=== PATIENT | female | born 1955 | race Caucasian/White ===

== ENCOUNTER 2018-10-07 20:50 | Inpatient (IN) | payer MEDICARE, MEDICAID ==
[~2018-10-07] VITALS: Ht 154.9 cm; Wt 62.1 kg
[2018-10-07 20:50] VITALS: BP 123/80
[~2018-10-07 20:50] MED LIST: CETI-101 PO; GABA-531 PO; META-24 PO; OMEG100017 PO
[2018-10-07] MEDS ORDERED: IPRATROPIUM/ALBUTEROL 0.5-3(2.5)MG/3ML NEB HHN PRN (21:15)
[2018-10-07] MEDS ORDERED: CLONIDINE 0.1MG TABLET PO PRN (21:15)
[2018-10-07] MEDS ORDERED: BISACODYL 10MG SUPP PR PRN (21:15)
[2018-10-07] MEDS ORDERED: MORPHINE SULFATE 2 MG/ML CPJ (NOT FOR IM USE) IV PRN (21:15)
[2018-10-07] MEDS ORDERED: ONDANSETRON HCL 4MG/2ML INJ IV PRN (21:15)
[2018-10-07] MEDS ORDERED: ACETAMINOPHEN 325MG TABLET PO PRN (21:15)
[2018-10-07] MEDS ORDERED: MORPHINE SULFATE 4 MG/ML CPJ (NOT FOR IM USE) IV PRN (21:42)
[2018-10-07 22:50] VITALS: BP 123/80
[2018-10-08] MEDS: HYDROCODONE/ACETAMINOPHEN 5/325MG TABLET PO PRN ×3 (06:04→16:01)
[2018-10-08 07:36] LABS: CHLORIDE 106 mEq/L (98-107)
[2018-10-08 07:38] LABS: BASOPHILS % 0.3 % (0.0-2.0); EOSINOPHILS % 5.4 % (0.0-5.0); HEMOGLOBIN. 13.2 g/dL (12.0-16.0); LYMPHOCYTES % 20.7 % (20.0-50.0); MEAN CORPUSCULAR VOLUME 88.2 fL (81.0-99.0); MEAN PLATELET VOLUME 9.8 fl (7.4-10.4); MONOCYTES % 6.5 % (2.0-8.0); NEUTROPHILS % 67.1 % (40.0-76.0); PLATELET 241 x1000/uL (130-400); RED BLOOD CELL COUNT 4.42 mill/uL (4.2-5.4); RED CELL DISTRIBUTION WIDTH 12.8 % (11.6-14.6)
[2018-10-08 07:53] VITALS: BP 112/76
[2018-10-08] MEDS: FLUTICASONE PROPIONATE 50MCG/SPRAY BOTTLE BOTHNSTRLS SCH ×2 (08:20→21:49)
[2018-10-08] MEDS ORDERED: DOCUSATE SODIUM 100MG CAPSULE PO SCH (09:00)
[2018-10-08] MEDS ORDERED: BISACODYL 10MG SUPP PR PRN (12:45)
[2018-10-08] MEDS ORDERED: NA PHOS,M-B/NA PHOS,DI-BA ENEMA 118ML PR NR (12:45)
[2018-10-08] MEDS: LACTULOSE 20G/30ML UDC PO SCH ×3 (13:05→21:49)
[2018-10-08] MEDS: DOCUSATE SODIUM 100MG CAPSULE PO SCH (16:00)
[2018-10-08 20:00] VITALS: BP 108/74
[2018-10-08] MEDS: POLYETHYLENE GLYCOL 3350 (17GM) 1 DOSE PACK PO SCH (21:49)
[2018-10-09] MEDS: DOCUSATE SODIUM 100MG CAPSULE PO SCH ×2 (08:10→17:06)
[2018-10-09] MEDS: FLUTICASONE PROPIONATE 50MCG/SPRAY BOTTLE BOTHNSTRLS SCH ×2 (08:10→21:59)
[2018-10-09 08:17] VITALS: BP 114/75
[2018-10-09] MEDS: HYDROCODONE/ACETAMINOPHEN 5/325MG TABLET PO PRN (13:56)
[2018-10-09 20:29] VITALS: BP 109/72
[2018-10-09] MEDS: POLYETHYLENE GLYCOL 3350 (17GM) 1 DOSE PACK PO SCH (21:58)
[2018-10-10 08:00] VITALS: BP 121/84
[2018-10-10] MEDS: DOCUSATE SODIUM 100MG CAPSULE PO SCH ×2 (09:19→16:51)
[2018-10-10] MEDS: FLUTICASONE PROPIONATE 50MCG/SPRAY BOTTLE BOTHNSTRLS SCH ×2 (09:19→20:43)
[2018-10-10 10:30] LABS: FOLIC ACID (FOLATE) SERUM 11.7 ng/mL (>5.38)
[2018-10-10 18:20] LABS: T4 FREE 1.33 ng/dL (0.76-1.46)
[2018-10-10 20:00] VITALS: BP 151/83
[2018-10-10] MEDS: POLYETHYLENE GLYCOL 3350 (17GM) 1 DOSE PACK PO SCH (20:43)
[2018-10-11] MEDS: HYDROCODONE/ACETAMINOPHEN 5/325MG TABLET PO PRN (05:57)
[2018-10-11 08:00] VITALS: BP 123/72
[2018-10-11] MEDS: DOCUSATE SODIUM 100MG CAPSULE PO SCH ×2 (08:12→16:01)
[2018-10-11] MEDS: FLUTICASONE PROPIONATE 50MCG/SPRAY BOTTLE BOTHNSTRLS SCH (08:13)
[2018-10-11 09:49] LABS: BASOPHILS % 0.6 % (0.0-2.0); EOSINOPHILS % 9.9 % (0.0-5.0); HEMATOCRIT. 39.3 % (36.0-48.0); HEMOGLOBIN. 13.4 g/dL (12.0-16.0); LYMPHOCYTES % 26.9 % (20.0-50.0); MEAN CORPUSCULAR HEMOGLOBIN 30.3 pg (28.0-32.0); MEAN CORPUSCULAR VOLUME 88.9 fL (81.0-99.0); MEAN PLATELET VOLUME 10.1 fl (7.4-10.4); MONOCYTES % 8.4 % (2.0-8.0); NEUTROPHILS % 54.2 % (40.0-76.0); PLATELET 259 x1000/uL (130-400); RED BLOOD CELL COUNT 4.42 mill/uL (4.2-5.4); RED CELL DISTRIBUTION WIDTH 13.1 % (11.6-14.6)
[2018-10-11 12:21] LABS: CHLORIDE 104 mEq/L (98-107)
[2018-10-11] MEDS: CYANOCOBALAMIN 1000MCG/ML VIAL IM SCH (15:52)
[2018-10-11 20:00] VITALS: BP 101/64
[2018-10-11] MEDS: GABAPENTIN 100MG CAPSULE PO SCH (20:48)
[2018-10-11] MEDS: POLYETHYLENE GLYCOL 3350 (17GM) 1 DOSE PACK PO SCH (20:48)
[2018-10-12] MEDS: GABAPENTIN 100MG CAPSULE PO SCH ×3 (05:08→21:30)
[2018-10-12 06:51] LABS: CHLORIDE 103 mEq/L (98-107)
[2018-10-12 06:58] LABS: BASOPHILS % 0.5 % (0.0-2.0); EOSINOPHILS % 8.2 % (0.0-5.0); HEMATOCRIT. 37.5 % (36.0-48.0); HEMOGLOBIN. 12.8 g/dL (12.0-16.0); LYMPHOCYTES % 28.4 % (20.0-50.0); MEAN CORPUSCULAR HEMOGLOBIN 30.3 pg (28.0-32.0); MEAN PLATELET VOLUME 9.6 fl (7.4-10.4); MONOCYTES % 9.6 % (2.0-8.0); NEUTROPHILS % 53.3 % (40.0-76.0); PLATELET 245 x1000/uL (130-400); RED BLOOD CELL COUNT 4.21 mill/uL (4.2-5.4)
[2018-10-12 08:18] VITALS: BP 108/67
[2018-10-12] MEDS: DOCUSATE SODIUM 100MG CAPSULE PO SCH ×2 (08:47→16:18)
[2018-10-12] MEDS: CYANOCOBALAMIN 1000MCG/ML VIAL IM SCH (08:47)
[2018-10-12 20:00] VITALS: BP 107/63
[2018-10-12] MEDS: POLYETHYLENE GLYCOL 3350 (17GM) 1 DOSE PACK PO SCH (21:00)
[2018-10-13] MEDS: GABAPENTIN 100MG CAPSULE PO SCH ×3 (06:21→21:47)
[2018-10-13 07:19] LABS: BASOPHILS % 0.8 % (0.0-2.0); EOSINOPHILS % 6.1 % (0.0-5.0); HEMATOCRIT. 36.4 % (36.0-48.0); HEMOGLOBIN. 12.8 g/dL (12.0-16.0); LYMPHOCYTES % 32.1 % (20.0-50.0); MEAN CORPUSCULAR HEMOGLOBIN 31.3 pg (28.0-32.0); MEAN CORPUSCULAR VOLUME 89.3 fL (81.0-99.0); MEAN PLATELET VOLUME 9.9 fl (7.4-10.4); MONOCYTES % 9.5 % (2.0-8.0); NEUTROPHILS % 51.5 % (40.0-76.0); PLATELET 245 x1000/uL (130-400); RED BLOOD CELL COUNT 4.08 mill/uL (4.2-5.4); RED CELL DISTRIBUTION WIDTH 12.8 % (11.6-14.6)
[2018-10-13 07:30] LABS: CHLORIDE 106 mEq/L (98-107)
[2018-10-13 07:53] VITALS: BP 107/67
[2018-10-13] MEDS: DOCUSATE SODIUM 100MG CAPSULE PO SCH ×2 (07:58→17:18)
[2018-10-13] MEDS: CYANOCOBALAMIN 1000MCG/ML VIAL IM SCH (07:59)
[2018-10-13 20:00] VITALS: BP 116/74
[2018-10-13] MEDS: POLYETHYLENE GLYCOL 3350 (17GM) 1 DOSE PACK PO SCH (20:43)
[2018-10-14] MEDS: GABAPENTIN 100MG CAPSULE PO SCH ×2 (06:15→13:28)
[2018-10-14 08:48] VITALS: BP 104/69
[2018-10-14] MEDS: DOCUSATE SODIUM 100MG CAPSULE PO SCH (09:49)
[2018-10-14] MEDS ORDERED: DOCU-150 MT (11:44)
[2018-10-14] MEDS ORDERED: ACET-2178 PO (11:44)
[2018-10-14 11:46] VITALS: BP 104/69
[2018-10-16 15:06] LABS: 25-HYDROXY VITAMIN D3 24 ng/mL (.)
== END 2018-10-14 17:00 | disposition home or self-care (01) | DRG 551 ==
PROVIDERS: ADMIT Physical Medicine & Rehabilitation Spinal Cord Injury Medicine; ATTEND Internal Medicine
DX: M50.022 Cervical disc disorder at C5-C6 level with myelopathy (principal); G82.50 Quadriplegia, unspecified; G95.29 Other cord compression; M47.12 Other spondylosis with myelopathy, cervical region; K59.2 Neurogenic bowel, not elsewhere classified; K21.9 Gastro-esophageal reflux disease without esophagitis; K59.00 Constipation, unspecified; B35.1 Tinea unguium; F06.31 Mood disorder due to known physiological condition with depressive features; G89.29 Other chronic pain; M19.90 Unspecified osteoarthritis, unspecified site; J30.2 Other seasonal allergic rhinitis; M71.20 Synovial cyst of popliteal space [Baker], unspecified knee; M47.22 Other spondylosis with radiculopathy, cervical region; M50.122 Cervical disc disorder at C5-C6 level with radiculopathy; M54.5 Low back pain; R26.9 Unspecified abnormalities of gait and mobility; R73.9 Hyperglycemia, unspecified; R53.81 Other malaise; R94.6 Abnormal results of thyroid function studies; R20.0 Anesthesia of skin; I10 Essential (primary) hypertension; M48.02 Spinal stenosis, cervical region; N31.9 Neuromuscular dysfunction of bladder, unspecified; R13.10 Dysphagia, unspecified; Z80.6 Family history of leukemia; Z82.49 Family history of ischemic heart disease and other diseases of the circulatory system; Z98.51 Tubal ligation status; Z98.1 Arthrodesis status; Z88.0 Allergy status to penicillin
CPT/HCPCS: 36415; 80048; 82306; 82607; 82746; 84134; 84439; 84443; 84481; 84630; 92610; 93970; 97110; 97112; 97116; 97162; 97166; 97530; 97535; J3420

== ENCOUNTER 2019-05-20 18:34 | Emergency (ER) | payer MEDICARE, MEDICAID ==
[~2019-05-20] VITALS: Ht 162.6 cm; Wt 59.0 kg
[~2019-05-20 18:34] MED LIST changes: +ACET-2178 PO; +DOCU-150 MT; -GABA-531 PO; -META-24 PO
[2019-05-20] MEDS ORDERED: LIDOCAINE HCL/PF 1% 10 MG/ML 5ML VIAL IJ ONE (22:30)
[2019-05-20] MEDS ORDERED: BACITRACIN ZINC OINT UDPKT TOP ONE (22:30)
[2019-05-20] MEDS ORDERED: IBUPROFEN 600MG TABLET PO ONE (22:30)
[2019-05-20 23:34] VITALS: BP 142/76
== END 2019-05-20 23:35 | disposition home or self-care (01) ==
LOC: ER 18:34
DX: S61.212A Laceration without foreign body of right middle finger without damage to nail, initial encounter (principal); Z88.0 Allergy status to penicillin; Z79.899 Other long term (current) drug therapy; W54.0XXA Bitten by dog, initial encounter; Y93.89 Activity, other specified; Y92.89 Other specified places as the place of occurrence of the external cause; Y99.8 Other external cause status; Z91.011 Allergy to milk products
CPT/HCPCS: 12001; 73140; 99283; J3490

== ENCOUNTER 2019-05-22 11:01 | Emergency (ER) | payer MEDICARE, MEDICAID ==
[~2019-05-22] VITALS: Ht 160 cm; Wt 80.0 kg
[2019-05-22] MEDS ORDERED: HYDROCODONE/ACETAMINOPHEN 5/325MG TABLET PO ONE (12:00)
[2019-05-22 12:20] VITALS: BP 115/64
== END 2019-05-22 12:15 | disposition home or self-care (01) ==
LOC: ER 11:01
DX: M79.644 Pain in right finger(s) (principal); L03.011 Cellulitis of right finger; Z88.0 Allergy status to penicillin
CPT/HCPCS: 99283